=== PATIENT | male | born 1955 | race American Indian/Alaskan Native ===

== ENCOUNTER 2017-07-31 16:14 | Emergency (ER) | payer SELFPAY ==
[2017-07-31 16:22] VITALS: BP 148/92
== END 2017-07-31 19:35 | disposition left against medical advice (07) ==
LOC: ED 16:14
DX: M54.9 Dorsalgia, unspecified (principal); Z53.21 Procedure and treatment not carried out due to patient leaving prior to being seen by health care provider

== ENCOUNTER 2019-07-02 06:22 | Observation (INO) | payer MEDICAID ==
[2019-07-02] MEDS ORDERED: ONDANSETRON 4 MG/2 ML INJ IV ONE (07:24)
[2019-07-02] MEDS ORDERED: MORPHINE 2 MG/1 ML INJ IV ONE (07:24)
[2019-07-02] MEDS ORDERED: LORazepam 2 MG/ML VIAL IV ONE (07:24)
--- NOTE | 2019-07-02 07:29 | Emergency Department Report ---
ED Chest Pain HPI - General Chief Complaint: Chest Pain Stated Complaint: CP Time Seen by Provider: 07/02/19 07:07 Source: EMS Mode of arrival: Stretcher Limitations: No Limitations - History of Present Illness Initial Comments: 63-year-old male states he awoke with chest pain at about 4 PM yesterday. He was taking a nap prior. He admits to chronic pain and sees a ict analyst. He states he has a "lupus factor". He has chronic joint pain. He states he has pain in the left ankle which is chronic. He's had no leg swelling or pain. He states the pain in his chest is sharp and nonradiating. It is in the left mammary area. It is not associated with cough or shortness of breath. The patient admits to having an anxiety disorder. He states he sees a elephant tamer in [place] that "did a stress test" 2 years ago but "did not put me on a machine". He was here for chest pain in the past but eloped. He has no history of venous thromboembolism himself and not in the family. He states that his father of a myocardial infarction when he was in his 40s. I reviewed the patient's prior EKG here when he eloped after presenting from c hest pain. He did have intermittent inverted T waves that are not currently present. MD Complaint: chest pain Onset: during rest Pain Location: left chest Pain Radiation: none Severity: moderate Quality: aching Consistency: intermittent Improves With: nothing Worsens With: other (yesterday was worse with breathing) re: denies: nausea, vomting, diaphoresis, dyspnea Other Symptoms: denies: cough, fever, syncope Aspirin use within the Past 7 Days: (0) No - Related Data Home Medications Medication Instructions Recorded Confirmed Last Taken Simvastatin [Zocor TAB] 40 mg PO DAILY 07/19/15 07/19/15 07/19/15 lisinopriL [Zestril TAB] 40 mg PO QDAY 07/19/15 07/19/15 07/19/15 Previous Rx's Medication Instructions Recorded Last Taken Type HYDROcodone/APAP 5-325 [[place] 1 each PO Q6HR PRN #14 tablet 07/19/15 Unknown Rx 5/325] oxyCODONE /ACETAMINOPHEN [Percocet 1 tab PO Q6HR PRN #7 tablet 07/20/15 Unknown Rx 5/325] Allergies Allergy/AdvReac Type Severity Reaction Status Date / Time diphenhydramine HCl Allergy Hives Verified 10/31/14 10:30 [From Benadryl] Heart Score - HEART Score History: Moderately suspicious EKG: Normal Age: 45-65 Risk factors: > 3 risk factors or hx of atherosclerotic disease Troponin: < normal limit HEART Score: 4 - Critical Actions Critical Actions: 4-6 pts:12-16.6% risk of adverse cardiac event. Should be admitted ED Review of Systems ROS: Stated complaint: CP Other details as noted in HPI Constitutional: denies: chills, fever Eyes: denies: eye pain, eye discharge, vision change ENT: denies: ear pain, throat pain Respiratory: denies: cough, shortness of breath, wheezing Cardiovascular: chest pain. denies: palpitations Endocrine: no symptoms reported Gastrointestinal: denies: abdominal pain, nausea, diarrhea Genitourinary: denies: urgency, dysuria Musculoskeletal: denies: back pain, joint swelling, arthralgia Skin: denies: rash, lesions Neurological: denies: headache, weakness, paresthesias Psychiatric: denies: anxiety, depression Hematological/Lymphatic: denies: easy bleeding, easy bruising ED Past Medical Hx - Past Medical History Hx Hypertension: Yes Hx Arthritis: Yes Additional medical history: high cholesterol - Surgical History Additional Surgical History: bilateral biceps repair. right rotator cuff repair. left great toe bone spur - Social History Smoking Status: Never Smoker Substance Use Type: Alcohol - Medications Home Medications: Home Medications Medication Instructions Recorded Confirmed Last Taken Type HYDROcodone/APAP 5-325 [[place] 1 each PO Q6HR PRN #14 tablet 07/19/15 Unknown Rx 5/325] Simvastatin [Zocor TAB] 40 mg PO DAILY 07/19/15 07/19/15 07/19/15 History lisinopriL [Zestril TAB] 40 mg PO QDAY 07/19/15 07/19/15 07/19/15 History oxyCODONE /ACETAMINOPHEN [Percocet 1 tab PO Q6HR PRN #7 tablet 07/20/15 Unknown Rx 5/325] ED Physical Exam - General Limitations: Other (patient's and jumping around on the stretcher) General appearance: alert, anxious - Head Head exam: Present: atraumatic, normocephalic - Eye Eye exam: Present: normal appearance. Absent: scleral icterus - ENT ENT exam: Present: mucous membranes moist - Neck Neck exam: Present: normal inspection. Absent: tenderness, meningismus - Respiratory Respiratory exam: Present: normal lung sounds bilaterally. Absent: respiratory distress - Cardiovascular Cardiovascular Exam: Present: regular rate, normal rhythm. Absent: systolic murmur, diastolic murmur, rubs, gallop - GI/Abdominal GI/Abdominal exam: Present: soft, normal bowel sounds. Absent: distended, tenderness, guarding, rebound, rigid - Rectal Rectal exam: Present: deferred - Extremities Exam Extremities exam: Present: normal inspection - Back Exam Back exam: Present: normal inspection - Neurological Exam Neurological exam: Present: alert, oriented X3, CN II-XII intact. Absent: motor sensory deficit - Psychiatric Psychiatric exam: Present: normal affect, normal mood - Skin Skin exam: Present: warm, dry, intact, normal color. Absent: rash ED Course Vital Signs 07/02/19 07/02/19 06:51 08:44 Temperature 97.4 F L Pulse Rate 92 H 90 Respiratory 27 H 16 Rate Blood Pressure 141/88 Blood Pressure 124/78 [Right] O2 Sat by Pulse 100 100 Oximetry - Reevaluation(s) Reevaluation #1: Patient was given morphine as well as small dose of Ativan. His acute anxiety seemed to improve. He was admitted by the hospitalist service further care and evaluation. 07/02/19 10:59 ALYSIA score - Alysia Score Age > 65: (0) No Aspirin use within the Past 7 Days: (0) No 3 or more CAD Risk Factors: (1) Yes 2 or more Angina events in past 24 hrs: (0) No Known CAD with more than 50% Stenosis: (0) No Elevated Cardiac Markers: (0) No ST Deviation Greater than 0.5mm: (0) No ALYSIA Score: 1 ED Medical Decision Making - Lab Data Result diagrams: 07/02/19 07:25 07/02/19 07:25 Laboratory Results - last 24 hr 07/02/19 07/02/19 07/02/19 07:25 07:25 07:25 WBC 6.5 RBC 4.27 Hgb 13.2 Hct 39.6 MCV 93 MCH 31 MCHC 33 RDW 12.9 L Plt Count 238 Lymph % (Auto) 23.0 [place] % (Auto) 14.8 H Eos % (Auto) 1.4 Baso % (Auto) 1.0 Lymph # 1.5 [place] # 1.0 H Eos # 0.1 Baso # 0.1 Seg Neutrophils % 59.8 Seg Neutrophils # 3.9 PT 15.3 H INR 1.19 H APTT 36.1 D-Dimer 280.54 H Sodium 136 L Potassium 3.8 Chloride 99.6 Carbon Dioxide 19 L Anion Gap 21 BUN 15 Creatinine 1.2 Estimated GFR > 60 BUN/Creatinine Ratio 13 Glucose 89 Calcium 9.3 Total Bilirubin 1.10 Direct Bilirubin 0.3 H Indirect Bilirubin 0.8 AST 45 H ALT 21 Alkaline Phosphatase 87 Troponin T < 0.010 NT-Pro-B Natriuret Pep 122.0 Total Protein 7.0 Albumin 3.8 L Albumin/Globulin Ratio 1.2 - EKG Data -: EKG Interpreted by Me EKG shows normal: sinus rhythm, axis, intervals, QRS complexes, ST-T waves Rate: normal - Radiology Data Radiology results: report reviewed (no acute process) Critical care attestation.: If time is entered above; I have spent that time in minutes in the direct care of this critically ill patient, excluding procedure time. ED Disposition Clinical Impression: Acute anxiety Chest pain Qualifiers: Chest pain type: unspecified Qualified Code(s): R07.9 - Chest pain, unspecified Disposition: OP ADMIT IP TO THIS HOSP Is pt being admited?: Yes Does the pt Need Aspirin: Yes Condition: Stable Instructions: Chest Pain (ED) Time of Disposition: 11:01
[2019-07-02 07:49] LABS: Basophils # (Auto) 0.1 K/mm3 (0.0-0.1); Eosinophils # (Auto) 0.1 K/mm3 (0.0-0.4); Eosinophils % (Auto) 1.4 % (0.0-4.3); Hematocrit 39.6 % (35.5-45.6); Hemoglobin 13.2 gm/dl (11.8-15.2); Lymphocytes # (Auto) 1.5 K/mm3 (1.2-5.4); Mean Corpuscular HGB Conc 33 % (32-34); Mean Corpuscular Volume 93 fl (84-94); Monocytes % (Auto) 14.8 % (0.0-7.3); Platelet Count 238 K/mm3 (140-440); Red Blood Count 4.27 M/mm3 (3.65-5.03); Red Cell Distribution Width 12.9 % (13.2-15.2)
[2019-07-02 08:00] LABS: INR 1.19 (0.87-1.13)
[2019-07-02 08:01] LABS: Partial Thromboplastin Time 36.1 Sec. (24.2-36.6)
[2019-07-02 08:18] LABS: Alanine Aminotransferase 21 units/L (7-56); Albumin 3.8 g/dL (3.9-5); BUN/Creatinine Ratio 13; Bilirubin,Direct 0.3 mg/dL (0-0.2); Blood Urea Nitrogen 15 mg/dL (9-20); Calcium 9.3 mg/dL (8.4-10.2); Hemolysis Index 15
[2019-07-02] MEDS ORDERED: ASPIRIN 325 MG TAB PO ONE (11:01)
--- NOTE | 2019-07-02 11:10 | Nuclear Medicine Report ---
NUCLEAR MEDICINE VENTILATION/PERFUSION LUNG SCAN INDICATION / CLINICAL INFORMATION: Chest pain, slightly elevated d-dimer. TECHNIQUE: 19.1 mCi of Xe-133 were given by inhalation. 4.6 mCi of Tc-99m MAA were given by IV. COMPARISON: Chest radiograph dated 08/31/2019 at 0743 hours. FINDINGS: VENTILATION: No significant ventilation defects. PERFUSION: 2 small subsegmental perfusion defects are identified in the lateral right lower lobe and right upper lobe. There is homogeneous distribution of the radiotracer throughout the remaining lungs . ADDITIONAL FINDINGS: None. IMPRESSION: Intermediate probability for pulmonary embolism. 2 small subsegmental perfusion defects are suggeste d in the right lung. Consider further evaluation with CTA chest. Signer Name: Tommy Emerson Jr, MD Signed: 07/02/2019 11:05 AM Workstation Name: [id number]
[2019-07-02] MEDS ORDERED: ASPIRIN 325 MG TAB ONE (12:22)
--- NOTE | 2019-07-02 14:32 | History and Physical Report ---
History of Present Illness Date of examination: 07/02/19 Date of admission: 07/02/19 11:01 Chief complaint: Chest pain History of present illness: 63-year-old male patient with significant past medical history of arthritis dyslipidemia presented to the emergency room with chest pain yesterday evening. Patient also has history of chronic pain and sees a log manager and was told that he has lupus factor. Patient also complains of some joint pains. 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 Patient also gives family history of coronary artery disease and his father in his 40s. OK At the time of my evaluation patient's chest pain significantly improved grades between 4-5/10, mild nausea no vomiting or diaphoresis Patient denies shortness of breath no nausea vomiting or abdominal pain First set of cardiac enzymes negative Patient had Elevated d-dimer's, VQ scan intermediate probability for PE Past History Past Medical History: arthritis, hypertension, hyperlipidemia Past Surgical History: Other (sabrina biceps repair, right rotator cuff repair, left great toe bone spur) Social history: lives with family. denies: smoking, alcohol abuse, prescription drug abuse Family history: CAD, hypertension Medications and Allergies Allergies Allergy/AdvReac Type Severity Reaction Status Date / Time diphenhydramine HCl Allergy Hives Verified 10/31/14 10:30 [[facility] Home Medications Medication Instructions Recorded Confirmed Last Taken Type HYDROcodone/APAP 5-325 [[place] 1 each PO Q6HR PRN #14 tablet 07/19/15 07/02/19 Unknown Rx 5/325] Simvastatin [Zocor TAB] 40 mg PO DAILY 07/19/15 07/02/19 07/19/15 History lisinopriL [Zestril TAB] 40 mg PO QDAY 07/19/15 07/02/19 07/19/15 History oxyCODONE /ACETAMINOPHEN [Percocet 1 tab PO Q6HR PRN #7 tablet 07/20/15 07/02/19 Unknown Rx 5/325] Gabapentin 10 mg PO DAILY 07/02/19 07/02/19 Unknown History Review of Systems Constitutional: no weight loss, no weight gain Ears, nose, mouth and throat: no nasal congestion, no nasal discharge Cardiovascular: chest pain, no orthopnea, no palpitations, no rapid/irregular heart beat, no edema Respiratory: no excessive sputum, no shortness of breath Gastrointestinal: no abdominal pain, no nausea, no vomiting Genitourinary Male: no dysuria, no hematuria Musculoskeletal: no neck stiffness, no neck pain Integumentary: no rash, no lesions Neurological: no weakness, no numbness, no seizures, no syncope Psychiatric: no anxiety, no depression Endocrine: no cold intolerance, no heat intolerance Hematologic/Lymphatic: no easy bruising, no easy bleeding Allergic/Immunologic: no urticaria, no allergic rhinitis Exam - Constitutional Vitals: Temp Pulse Resp BP Pulse Ox 97.8 F 82 16 115/79 98 07/02/19 12:23 07/02/19 12:23 07/02/19 12:23 07/02/19 12:07/02/19 12:23 General appearance: Present: no acute distress, well-nourished - EENT Eyes: Present: PERRL, EOM intact - Neck Neck: Present: supple, normal ROM - Respiratory Respiratory effort: normal Respiratory: bilateral: diminished, negative: rales, rhonchi, wheezing - Cardiovascular Rhythm: regular Heart Sounds: Present: S1 & S2 - Extremities Extremities: no ischemia, No edema - Abdominal General gastrointestinal: Present: soft, non-tender, non-distended, normal bowel sounds - Integumentary Integumentary: Present: clear, warm - Musculoskeletal Musculoskeletal: strength equal bilaterally - Psychiatric Psychiatric: appropriate mood/affect, cooperative - Neurologic Neurologic: CNII-XII intact, moves all extremities Results - Labs CBC & Chem 7: 07/02/19 07:25 07/02/19 07:25 Labs: Abnormal lab results 07/02/19 07/02/19 07/02/19 Range/Units 07:25 07:25 07:25 RDW 12.9 L (13.2-15.2) % [place] % (Auto) 14.8 H (0.0-7.3) % [place] # 1.0 H (0.0-0.8) K/mm3 PT 15.3 H (12.2-14.9) Sec. INR 1.19 H (0.87-1.13) D-Dimer 280.54 H (0-234) ng/mlDDU Sodium 136 L (137-145) mmol/L Carbon Dioxide 19 L (22-30) mmol/L Direct Bilirubin 0.3 H (0-0.2) mg/dL AST 45 H (5-40) units/L Albumin 3.8 L (3.9-5) g/dL Assessment and Plan --Chest pain; angina; Serial cardiac enzymes, echocardiogram Aspirin, beta blockers, nitrates, Oscar inhibitors, statins Pain medications, EKG when necessary for chest pain This patient has risk factors of family history of CAD Cardiology consult possible stress test [Cannot schedule's test tomorrow due to VQ scan study] --Elevated D dimers; Intermittent probability for PE on VQ scan Check CT angiogram of the chest to rule out PE --Hypertension; moderate control Continue current antihypertensives when necessary medications --Dyslipidemia; continue Lipitor --DVT prophylaxis; Lovenox Monitor closely and adjust management as needed. Disposition ; follow cardiology evaluation Discharge when stable
[2019-07-02] MEDS ORDERED: NITROGLYCERIN 0.4 MG TAB SUBL SL PRN (14:39)
[2019-07-02 15:24] LABS: Creatine Kinase MB 8.5 ng/mL (0.0-4.0)
[2019-07-02 15:26] LABS: Chol/HDL Ratio 2.18 %
[2019-07-02] MEDS: METOPROLOL TARTRATE 25 MG TAB PO SCH ×2 (17:11→22:40)
[2019-07-02] MEDS: LISINOPRIL 40 MG TAB PO SCH (17:13)
--- NOTE | 2019-07-02 18:45 | Event Note ---
Date: 07/02/19 Spoke with patient's daughter Ms. Natacha Cornell over the phone Patient's condition, treatment plan. Answered all her questions.
[2019-07-03 07:11] LABS: Bilirubin,Urine NEG (Negative); Blood,Urine NEG (Negative); Color,Urine Amber (Yellow); Mucus,Urine FEW /HPF; Protein,Urine <15 mg/dL mg/dL (Negative)
[2019-07-03 07:25] LABS: Amphetamine Screen,Urine PRESUMPTIVE NEGATIVE; Benzodiazepines Screen,Urine PRESUMPTIVE NEGATIVE; Cannabinoid Screen,Urine PRESUMPTIVE NEGATIVE; Methadone Screen,Urine PRESUMPTIVE NEGATIVE; Opiate Screen,Urine PRESUMPTIVE NEGATIVE
[2019-07-03 07:50] LABS: Cocaine Screen,Urine PRESUMPTIVE POSITIVE
[2019-07-03] MEDS ORDERED: MORPHINE 2 MG/1 ML INJ IV PRN (08:55)
[2019-07-03] MEDS ORDERED: ENOXAPARIN 100 MG/1 ML INJ SUB-Q SCH (10:00)
[2019-07-03] MEDS ORDERED: ENOXAPARIN 60 MG/0.6 ML INJ SUB-Q SCH (10:00)
[2019-07-03] MEDS ORDERED: NON-FORMULARY EACH (Simvastatin 40 MG) PO SCH (10:00)
--- NOTE | 2019-07-03 11:12 | Consultation ---
History of Present Illness Consult date: 07/03/19 Consult reason: chest pain History of present illness: This is a 63-year old male with a history of nonischemic cardiomyopathy by stress thallium test three years ago that reports normal myocardial perfusion study but a decrease left ventricular systolic function, ejection fraction 30- 35%. A follow up echocardiogram done a year later reports an improved left ventricular ejection fraction of 50-55%. Patient is followed by [facility] in [place]. Co-morbidities includes hypertension and hyperlipidemia Patient presents to this hospital with complaints of chest pain thus this cardiac consultation. Patient describes chest pain that worse with position changes, coughs, deep inspiration and raising his left arm. Cycled cardiac enzymes are normal. Chest x-ray reports is negative and hs ECG is benign. Further evaluation with a ventilation perfusion scan reports intermediate probability for PE. Past History Past Medical History: arthritis, hypertension, hyperlipidemia Past Surgical History: Other (sabrina biceps repair, right rotator cuff repair, left great toe bone spur) Social history: lives with family. denies: smoking, alcohol abuse, prescription drug abuse Family history: CAD, hypertension Medications and Allergies Allergies Allergy/AdvReac Type Severity Reaction Status Date / Time diphenhydramine HCl Allergy Hives Verified 10/31/14 10:30 [From Benadryl] Home Medications Medication Instructions Recorded Confirmed Last Taken Type HYDROcodone/APAP 5-325 [[place] 1 each PO Q6HR PRN #14 tablet 07/19/15 07/02/19 Unknown Rx 5/325] Simvastatin [Zocor TAB] 40 mg PO DAILY 07/19/15 07/02/19 07/19/15 History lisinopriL [Zestril TAB] 40 mg PO QDAY 07/19/15 07/02/19 07/19/15 History oxyCODONE /ACETAMINOPHEN [Percocet 1 tab PO Q6HR PRN #7 tablet 07/20/15 07/02/19 Unknown Rx 5/325] Gabapentin 10 mg PO DAILY 07/02/19 07/02/19 Unknown History Active Meds: Active Medications Aspirin (Aspirin) 325 mg PO QDAY [facility] Atorvastatin Calcium (Lipitor) 20 mg PO QHS [facility] Last Admin: 07/02/19 22:37 Dose: 20 mg Documented by: Enoxaparin Sodium (Enoxaparin) 60 mg SUB-Q Q12HR [facility]ID Lisinopril (Zestril) 40 mg PO QDAY [facility] Last Admin: 07/02/19 17:13 Dose: 40 mg Documented by: Metoprolol Tartrate (Metoprolol) 12.5 mg PO BID [facility] Last Admin: 07/02/19 22:40 Dose: Not Given Documented by: Morphine Sulfate (Morphine) 2 mg IV Q4H PRN PRN Reason: Pain, Moderate (4-6) Nitroglycerin (Nitrostat) 0.4 mg SL .Q5MIN PRN PRN Reason: Chest Pain Physical Examination Vital Signs Temp Pulse Resp BP Pulse Ox 97.4 F L 92 H 27 H 141/88 100 07/02/19 06:51 07/02/19 06:51 07/02/19 06:51 07/02/19 06:51 07/02/19 06:51 General appearance: no acute distress HEENT: Positive: PERRL Neck: Positive: trachea midline Cardiac: Positive: Reg Rate and Rhythm Lungs: Positive: Decreased Breath Sounds Neuro: Positive: Grossly Intact Extremities: Absent: edema Results 07/02/19 07:25 07/02/19 07:25 Cardiac Enzymes 07/02/19 Range/Units 14:41 CK-MB (CK-2) 8.5 H (0.0-4.0) ng/mL Lipids 07/02/19 Range/Units 14:41 Triglycerides 45 (2-149) mg/dL Cholesterol 140 (50-199) mg/dL HDL Cholesterol 64 H (40-59) mg/dL Cholesterol/HDL Ratio 2.18 % Assessment and Plan Chest pain, musculoskeletal VQ scan: intermediate probability for PE Hypertension Hx of NICMP, resolving EF 50-55% by echo at [facility] in 2018 EF 30-35% by echo at [facility] in 2017 normal perfusion MPI Hlp We will repeat an echocardiogram for LVEF reassessment. Awaits chest CTA for PE evaluation.
--- NOTE | 2019-07-03 11:55 | Cat Scan Report ---
CTA CHEST WITH CONTRAST INDICATION : interm.probab PE on VQ, r/o PE. Chest pain. TECHNIQUE: Axial imaging performed through the chest, with contrast bolus timing set to maximize opa cification of the pulmonary arteries. 3-plane MIP reformatted images were obtained. All CT scans at this location are performed using CT dose reduction for ALARA by means of automated exposure control. 100 mL of Omnipaque 350 intravenous contrast administered. Consent was obtained prior to the administ ration of contrast. COMPARISON: Chest x-ray and nuclear medicine lung scan from 07/02/2019. No previous CTA Chest for corey hassan. FINDINGS: Bolus: Contrast bolus timing is adequate. PTE: No filling defect is present to suggest PTE. Mediastinum: Heart and great vessels appear normal. No pathologic mediastinal adenopathy. Lungs: Lungs are clear. Upper abdomen: Limited imaging of the upper abdomen shows nothing acute. Bones: Degenerative changes in the spine with nothing acute. IMPRESSION: Negative for PTE. Clear lungs. Signer Name: Rao Bryan MD Signed: 07/03/2019 11:51 AM Workstation Name: [id number]
[2019-07-03] MEDS: METOPROLOL TARTRATE 25 MG TAB PO SCH ×2 (14:00→21:08)
[2019-07-03] MEDS: ASPIRIN 325 MG TAB PO SCH (15:00)
[2019-07-03] MEDS: KETOROLAC 30 MG/1 ML INJ IV SCH ×2 (15:01→21:39)
--- NOTE | 2019-07-03 17:46 | Progress Note ---
Assessment and Plan Assessment and plan: 63-year-old male patient with significant past medical history of arthritis dyslipidemia was admitted through emergency room with chest pain and shortness of breath Patient had negative stress test 2 years ago, has family history of coronary artery disease, cardiology evaluated, echo EF 25-30% --Chest pain; angina; Serial cardiac enzymes, echocardiogram;EF 25-30% Aspirin, beta blockers, nitrates, Oscar inhibitors, statins Pain medications, EKG when necessary for chest pain This patient has risk factors of family history of CAD Cardiology following --Acute systolic congestive heart failure; EF 25-30% IV diuretics, beta blockers, oscar inhibitors, input output monitoring Low-sodium diet, fluid restriction. Cardiology following --Elevated D dimers; Intermittent probability for PE on VQ scan CTA chest neg PE --Hypertension; moderate control Continue current antihypertensives when necessary medications --Dyslipidemia; continue Lipitor --DVT prophylaxis; Lovenox Monitor closely and adjust management as needed. Plan of care reviewed with the patient and his nurse Cardiology consult and recommendations noted and appreciated Disposition ; follow cardiology evaluation Discharge when stable History Interval history: Patient seen examination at the bedside ,medical records reviewed CT chest is negative for PE, Lovenox discontinued Cardiology evaluation and recommendations noted and appreciated Hospitalist Physical - Constitutional Vitals: Temp Pulse Resp BP Pulse Ox 98.0 F 78 16 112/69 98 07/03/19 07:00 07/03/19 07:00 07/03/19 07:00 07/03/19 07:00 07/03/19 07:00 General appearance: Present: mild distress, well-nourished - EENT Eyes: Present: PERRL, EOM intact - Neck Neck: Present: supple, normal ROM - Respiratory Respiratory effort: normal Respiratory: bilateral: diminished, rales, negative: rhonchi, wheezing - Cardiovascular Rhythm: regular Heart Sounds: Present: S1 & S2 - Extremities Extremities: no ischemia, No edema - Abdominal General gastrointestinal: soft, non-tender, non-distended, normal bowel sounds - Integumentary Integumentary: Present: clear, warm - Psychiatric Psychiatric: appropriate mood/affect, cooperative - Neurologic Neurologic: CNII-XII intact, moves all extremities HAROON score - Haroon Score Age > 65: (0) No Aspirin use within the Past 7 Days: (0) No 3 or more CAD Risk Factors: (1) Yes 2 or more Angina events in past 24 hrs: (0) No Known CAD with more than 50% Stenosis: (0) No Elevated Cardiac Markers: (0) No ST Deviation Greater than 0.5mm: (0) No HAROON Score: 1 Results - Labs CBC & Chem 7: 07/02/19 07:25 07/02/19 07:25 Labs: Laboratory Last Values WBC 6.5 K/mm3 (4.5-11.0) 07/02/19 07:25 RBC 4.27 M/mm3 (3.65-5.03) 07/02/19 07:25 Hgb 13.2 gm/dl (11.8-15.2) 07/02/19 07:25 Hct 39.6 % (35.5-45.6) 07/02/19 07:25 MCV 93 fl (84-94) 07/02/19 07:25 MCH 31 pg (28-32) 07/02/19 07:25 MCHC 33 % (32-34) 07/02/19 07:25 RDW 12.9 % (13.2-15.2) L 07/02/19 07:25 Plt Count 238 K/mm3 (140-440) 07/02/19 07:25 Lymph % (Auto) 23.0 % (13.4-35.0) 07/02/19 07:25 [place] % (Auto) 14.8 % (0.0-7.3) H 07/02/19 07:25 Eos % (Auto) 1.4 % (0.0-4.3) 07/02/19 07:25 Baso % (Auto) 1.0 % (0.0-1.8) 07/02/19 07:25 Lymph # 1.5 K/mm3 (1.2-5.4) 07/02/19 07:25 [place] # 1.0 K/mm3 (0.0-0.8) H 07/02/19 07:25 Eos # 0.1 K/mm3 (0.0-0.4) 07/02/19 07:25 Baso # 0.1 K/mm3 (0.0-0.1) 07/02/19 07:25 Seg Neutrophils % 59.8 % (40.0-70.0) 07/02/19 07:25 Seg Neutrophils # 3.9 K/mm3 (1.8-7.7) 07/02/19 07:25 PT 15.3 Sec. (12.2-14.9) H 07/02/19 07:25 INR 1.19 (0.87-1.13) H 07/02/19 07:25 APTT 36.1 Sec. (24.2-36.6) 07/02/19 07:25 D-Dimer 280.54 ng/mlDDU (0-234) H 07/02/19 07:25 Sodium 136 mmol/L (137-145) L 07/02/19 07:25 Potassium 3.8 mmol/L (3.6-5.0) 07/02/19 07:25 Chloride 99.6 mmol/L (98-107) 07/02/19 07:25 Carbon Dioxide 19 mmol/L (22-30) L 07/02/19 07:25 Anion Gap 21 mmol/L 07/02/19 07:25 BUN 15 mg/dL (9-20) 07/02/19 07:25 Creatinine 1.2 mg/dL (0.8-1.5) 07/02/19 07:25 Estimated GFR > 60 ml/min 07/02/19 07:25 BUN/Creatinine Ratio 13 % 07/02/19 07:25 Glucose 89 mg/dL (75-100) 07/02/19 07:25 POC Glucose 147 (70-105) H 07/03/19 16:35 Calcium 9.3 mg/dL (8.4-10.2) 07/02/19 07:25 Total Bilirubin 1.10 mg/dL (0.1-1.2) 07/02/19 07:25 Direct Bilirubin 0.3 mg/dL (0-0.2) H 07/02/19 07:25 Indirect Bilirubin 0.8 mg/dL 07/02/19 07:25 AST 45 units/L (5-40) H 07/02/19 07:25 ALT 21 units/L (7-56) 07/02/19 07:25 Alkaline Phosphatase 87 units/L (35-129) 07/02/19 07:25 Total Creatine Kinase 795 units/L (55-170) H 07/02/19 14:41 CK-MB (CK-2) 8.5 ng/mL (0.0-4.0) H 07/02/19 14:41 CK-MB (CK-2) Rel Index 1.0 (0-4) 07/02/19 14:41 Troponin T < 0.010 ng/mL (0.00-0.029) 07/02/19 14:41 NT-Pro-B Natriuret Pep 122.0 pg/mL (0-900) 07/02/19 07:25 Total Protein 7.0 g/dL (6.3-8.2) 07/02/19 07:25 Albumin 3.8 g/dL (3.9-5) L 07/02/19 07:25 Albumin/Globulin Ratio 1.2 % 07/02/19 07:25 Triglycerides 45 mg/dL (2-149) 07/02/19 14:41 Cholesterol 140 mg/dL (50-199) 07/02/19 14:41 LDL Cholesterol Direct 74 mg/dL (50-130) 07/02/19 14:41 HDL Cholesterol 64 mg/dL (40-59) H 07/02/19 14:41 Cholesterol/HDL Ratio 2.18 % 07/02/19 14:41 Urine Color [place] (Yellow) 07/02/19 07:00 Urine Turbidity Clear (Clear) 07/02/19 07:00 Urine pH 5.0 (5.0-7.0) 07/02/19 07:00 Ur Specific [place] 1.021 (1.003-1.030) 07/02/19 07:00 Urine Protein <15 mg/dl mg/dL (Negative) 07/02/19 07:00 Urine Glucose (UA) Neg mg/dL (Negative) 07/02/19 07:00 Urine Ketones Neg mg/dL (Negative) 07/02/19 07:00 Urine Blood Neg (Negative) 07/02/19 07:00 Urine Nitrite Neg (Negative) 07/02/19 07:00 Urine Bilirubin Neg (Negative) 07/02/19 07:00 Urine Urobilinogen 4.0 mg/dL (<2.0) 07/02/19 07:00 Ur Leukocyte Esterase Neg (Negative) 07/02/19 07:00 Urine WBC (Auto) 1.0 /HPF (0.0-6.0) 07/02/19 07:00 Urine RBC (Auto) 1.0 /HPF (0.0-6.0) 07/02/19 07:00 U Epithel Cells (Auto) < 1.0 /HPF (0-13.0) 07/02/19 07:00 Urine Mucus Few /HPF 07/02/19 07:00 Urine Opiates Screen Presumptive negative 07/02/19 07:00 Urine Methadone Screen Presumptive negative 07/02/19 07:00 Ur Barbiturates Screen Presumptive negative 07/02/19 07:00 Ur Phencyclidine Scrn Presumptive negative 07/02/19 07:00 Ur Amphetamines Screen Presumptive negative 07/02/19 07:00 U Benzodiazepines Scrn Presumptive negative 07/02/19 07:00 Urine Cocaine Screen Presumptive positive 07/02/19 07:00 U Marijuana (THC) Screen Presumptive negative 07/02/19 07:00 Drugs of Abuse Note Disclamer 07/02/19 07:00 Active Medications - Current Medications Current Medications: Generic Name Dose Route Start Last Admin Trade Name Freq PRN Reason Stop Dose Admin Aspirin 325 mg 07/03/19 10:00 07/03/19 15:00 Aspirin PO 325 mg QDAY REID Administration Atorvastatin Calcium 20 mg 07/02/19 22:00 07/02/19 22:37 Lipitor PO 20 mg QHS REID Administration Enoxaparin Sodium 60 mg 07/03/19 10:00 07/03/19 15:00 Enoxaparin SUB-Q 60 mg Q12HR REID Administration Ketorolac Tromethamine 30 mg 07/03/19 14:00 07/03/19 15:01 Toradol IV 07/05/19 06:01 30 mg Q8HR REID Administration Lisinopril 40 mg 07/02/19 15:00 07/02/19 17:13 Zestril PO 40 mg QDAY REID Administration Metoprolol Tartrate 12.5 mg 07/02/19 15:00 07/02/19 22:40 Metoprolol PO Not Given BID REID Morphine Sulfate 2 mg 07/03/19 08:55 Morphine IV Q4H PRN Pain, Moderate (4-6) Nitroglycerin 0.4 mg 07/02/19 14:39 Nitrostat SL .Q5MIN PRN Chest Pain
[2019-07-03] MEDS: LISINOPRIL 40 MG TAB PO SCH (18:45)
[2019-07-04] MEDS: KETOROLAC 30 MG/1 ML INJ IV SCH ×2 (05:10→14:31)
--- NOTE | 2019-07-04 09:09 | Progress Note ---
Assessment and Plan Chest pain, musculoskeletal VQ scan: intermediate probability for PE CT angiogram of the chest was negative for pulmonary embolism Hypertension Hx of NICMP Echo this admission reports mild dilated left ventricle with moderate left ventricular hypertrophy, and left ventricular EF 30%. EF 50-55% by echo at [facility] in 2018 EF 30-35% by echo at [facility] in 2017 normal perfusion MPI Hlp Substance abuse Recommendations: Continue medical therapy for musculoskeletal chest pain. Continue medical therapy for nonischemic cardiomyopathy. Subjective Date of service: 07/04/19 Interval history: Patient reports less chest pain since the initiation of IV Toradol. He denies shortness of breath. Objective Vital Signs Temp Pulse Resp BP Pulse Ox 07/04/19 05:56 97.6 F 87 18 123/67 96 07/03/19 23:01 98.1 F 75 18 116/67 97 07/03/19 18:45 119/68 07/03/19 17:52 98.0 F 77 20 119/68 99 - Physical Examination General: No Apparent Distress HEENT: Positive: PERRL Neck: Positive: trachea midline Cardiac: Positive: Reg Rate and Rhythm Lungs: Positive: Decreased Breath Sounds Neuro: Positive: Grossly Intact Extremities: Absent: edema
[2019-07-04] MEDS: ASPIRIN 325 MG TAB PO SCH (09:47)
[2019-07-04] MEDS: METOPROLOL TARTRATE 25 MG TAB PO SCH (09:47)
[2019-07-04] MEDS: LISINOPRIL 40 MG TAB PO SCH (09:47)
[2019-07-04] MEDS ORDERED: ENOXAPARIN 40 MG/0.4 ML INJ SUB-Q SCH (10:00)
[2019-07-04] MEDS ORDERED: ENOXAPARIN 30 MG/0.3 ML INJ SUB-Q SCH (10:00)
[2019-07-04 13:55] VITALS: BP 116/66
--- NOTE | 2019-07-04 15:17 | Discharge Summary ---
Providers - Providers Date of Admission: 07/02/19 11:01 Date of discharge: 07/04/19 Attending physician: DIANNE GONZALEZ 07/02/19 16:42 Consult to Physician [CONS] Routine Comment: Consulting Provider: JB ROSE Physician Instructions: Reason For Exam: chest pain /risk factors Primary care physician: [facility] [employer] [facility]N Hospitalization Condition: Stable Pertinent studies: CXR Pulmonary VQ scan CTA chest 2d echo Hospital course: 63-year-old man with h/o CHF who presented with atypical, pleuritic left-sided chest pain. Chest pain is aggravated by movements of the thorax and by inspiration. A VQ scan study was intermediate probability, but the follow-up CT angiogram of the chest was negative for pulmonary embolism. On this presentation, EKG is a sinus rhythm, normal ECG. Echocardiogram done showed a mildly dilated left ventricle with moderate left ventricular hypertrophy, and left ventricular ejection fraction about 30%. His UDs was positive for Cocaine, he also had mildly elevated CPK. Cardiology evaluated the patient and recommended medical mx. Patient was then discharged home in stable condition. Discharge diagnosis: Chest pain, musculoskeletal - costrochondritis - VQ scan: intermediate probability for PE - CT angiogram of the chest was negative for pulmonary embolism Hypertension, stable Hx of NICMP, compensated - Echo this admission reports mild dilated left ventricle with moderate left ventricular hypertrophy, and left ventricular EF 30%. - cardiology recommended medical Mx HLD, cont diet control and statin Elevated CPK/rhabdomyolysis - likely from cocaine abuse - patient was stable Substance abuse with cocaine, counseled Time spent for discharge: 34 minutes Core Measure Documentation - Palliative Care Palliative Care/ Comfort Measures: Not Applicable - Core Measures Any of the following diagnoses?: none Exam - Constitutional Vitals: Temp Pulse Resp BP Pulse Ox 97.8 F 78 18 116/66 98 07/04/19 13:53 07/04/19 13:53 07/04/19 13:53 07/04/19 13:53 07/04/19 13:53 General appearance: Present: no acute distress, well-nourished - EENT Eyes: Present: PERRL ENT: hearing intact, clear oral mucosa - Neck Neck: Present: supple, normal ROM - Respiratory Respiratory effort: normal Respiratory: bilateral: CTA - Cardiovascular Heart Sounds: Present: S1 & S2. Absent: rub, click - Extremities Extremities: pulses symmetrical, No edema Peripheral Pulses: within normal limits - Abdominal General gastrointestinal: Present: soft, non-tender, non-distended, normal bowel sounds Male genitourinary: Present: normal - Integumentary Integumentary: Present: clear, warm, dry - Musculoskeletal Musculoskeletal: gait normal, strength equal bilaterally - Psychiatric Psychiatric: appropriate mood/affect, intact judgment & insight - Neurologic Neurologic: CNII-XII intact, moves all extremities Plan Activity: advance as tolerated Weight Bearing Status: Weight Bear as Tolerated Diet: low fat, low salt Special Instructions: restrict fluid intake to (1.5L per day) Additional Instructions: f/u with your seo assistant at [facility]. Follow up with: PRIMARY CARE, [Primary Care Provider] - 7 Days Prescriptions: Pravastatin [Pravachol] 40 mg PO QHS #30 tablet Aspirin EC [Halfprin EC] 81 mg PO QDAY #30 tablet. Metoprolol [Lopressor TAB] 12.5 mg PO BID #60 tablet lisinopriL [Zestril TAB] 40 mg PO QDAY #30 tablet
[2019-07-04] MEDS ORDERED: ACETAMINOPHEN 325 MG TAB PO PRN (16:00)
== END 2019-07-04 17:00 | disposition home or self-care (01) ==
LOC: ED 06:22 → 3A 11:01
PROVIDERS: ADMIT Internal Medicine; ATTEND Internal Medicine
DX: R07.89 Other chest pain (principal); I10 Essential (primary) hypertension; R74.8 Abnormal levels of other serum enzymes; F41.9 Anxiety disorder, unspecified; E78.00 Pure hypercholesterolemia, unspecified; M19.90 Unspecified osteoarthritis, unspecified site; Z98.890 Other specified postprocedural states
CPT/HCPCS: 36415; 71046; 71275; 78582; 80048; 80061; 80076; 80307; 81001; 82550; 82553; 82962; 83880; 84484; 85025; 85379; 85610; 85730; 93005; 93010; 93306; 96372; 96374; 96375; 96376; 99284; A9270; A9540; A9558; G0378; J1650; J1885; J2060; J2270; J2405; Q9967

== ENCOUNTER 2021-05-14 14:36 | Observation (INO) | payer MEDICAID ==
[2021-05-14] MEDS ORDERED: NITROGLYCERIN 0.4 MG TAB SUBL SL PRN (16:33)
[2021-05-14] MEDS ORDERED: MORPHINE 2 MG/1 ML INJ IV ONE (16:33)
[2021-05-14 16:49] LABS: Basophils % (Auto) 0.5 % (0.0-1.8); Eosinophils # (Auto) 0.1 K/mm3 (0.0-0.4); Eosinophils % (Auto) 1.6 % (0.0-4.3); Hematocrit 45.4 % (35.5-45.6); Hemoglobin 14.3 gm/dl (11.8-15.2); Lymphocytes # (Auto) 1.2 K/mm3 (1.2-5.4); Mean Corpuscular HGB Conc 32 % (32-34); Mean Corpuscular Volume 95 fl (84-94); Monocytes # (Auto) 0.5 K/mm3 (0.0-0.8); Platelet Count 253 K/mm3 (140-440); Red Blood Count 4.76 M/mm3 (3.65-5.03); Red Cell Distribution Width 13.3 % (13.2-15.2)
--- NOTE | 2021-05-14 16:50 | XRay Report ---
CHEST 2 VIEWS INDICATION / CLINICAL INFORMATION: Chest Pain. COMPARISON: 07/02/2019 FINDINGS: SUPPORT DEVICES: None. HEART / MEDIASTINUM: No significant abnormality. LUNGS / PLEURA: No significant pulmonary or pleural abnormality. No pneumothorax. ADDITIONAL FINDINGS: No significant additional findings. IMPRESSION: 1. No acute findings. Signer Name: Hong Myers MD Signed: 05/14/2021 4:45 PM Workstation Name: [id number]
[2021-05-14 16:52] LABS: Alanine Aminotransferase 18 units/L (7-56); Albumin 3.9 g/dL (3.9-5); BUN/Creatinine Ratio 14; Blood Urea Nitrogen 13 mg/dL (9-20); Calcium 9.4 mg/dL (8.4-10.2); Hemolysis Index 6
[2021-05-14] MEDS ORDERED: SODIUM CHLORIDE 0.9% 500 ML 500 ML IV ONE (16:57)
[2021-05-14 16:59] LABS: INR 0.96 (0.87-1.13)
--- NOTE | 2021-05-14 17:01 | Emergency Department Report ---
ED Chest Pain HPI - General Chief Complaint: Chest Pain Stated Complaint: CHEST PAIN Time Seen by Provider: 05/14/21 16:40 Source: patient Mode of arrival: Stretcher Limitations: No Limitations - History of Present Illness Initial Comments: Patient is a 65-year-old male here with complaint of chest pain. 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 He states that he was doing nothing earlier and developed middle chest pain and left sided chest pain that he reports as a tightness. He states it was severe 10 out of 10 when it first started and is currently 6 or 7 out of 10. He states it does not radiate. He notes no nausea no vomiting but states he does feel dizzy and lightheaded and his left arm feels numb. He also has history of hypertension, hyperlipidemia, CHF. MD Complaint: chest pain Severity scale (0 -10): 4 - Related Data Previous Rx's Medication Instructions Recorded Last Taken Type Aspirin EC [Halfprin EC] 81 mg PO QDAY #30 tablet. 07/04/19 Unknown Rx Metoprolol [Lopressor TAB] 12.5 mg PO BID #60 tablet 07/04/19 Unknown Rx Pravastatin [Pravachol] 40 mg PO QHS #30 tablet 07/04/19 Unknown Rx lisinopriL [Zestril TAB] 40 mg PO QDAY #30 tablet 07/04/19 Unknown Rx Allergies Allergy/AdvReac Type Severity Reaction Status Date / Time diphenhydramine HCl Allergy Hives Verified 10/31/14 10:30 [From Benadryl] Heart Score - HEART Score History: Moderately suspicious EKG: Non-specific Age: 45-65 Risk factors: 1-2 risk factors Troponin: < normal limit HEART Score: 4 - EKG Read Time Time EKG Completed: 15:35 EKG Read Time: 15:40 ED Review of Systems ROS: Stated complaint: CHEST PAIN Other details as noted in HPI Constitutional: no symptoms reported Eyes: denies: eye pain ENT: denies: throat pain Respiratory: denies: cough Cardiovascular: chest pain. denies: dyspnea on exertion, orthopnea, edema, syncope Endocrine: no symptoms reported Gastrointestinal: as per HPI. denies: nausea, vomiting Genitourinary: denies: urgency, dysuria Musculoskeletal: denies: back pain Skin: denies: rash Neurological: numbness. denies: headache, weakness Psychiatric: denies: anxiety, depression Hematological/Lymphatic: denies: easy bleeding ED Past Medical Hx - Past Medical History Previous Medical History?: Yes Hx Hypertension: Yes Hx Arthritis: Yes Additional medical history: high cholesterol - Surgical History Additional Surgical History: bilateral biceps repair. right rotator cuff repair. left great toe bone spur - Social History Smoking Status: Never Smoker - Medications Home Medications: Home Medications Medication Instructions Recorded Confirmed Last Taken Type Aspirin EC [Halfprin EC] 81 mg PO QDAY #30 tablet.dr 07/04/19 Unknown Rx Metoprolol [Lopressor TAB] 12.5 mg PO BID #60 tablet 07/04/19 Unknown Rx Pravastatin [Pravachol] 40 mg PO QHS #30 tablet 07/04/19 Unknown Rx lisinopriL [Zestril TAB] 40 mg PO QDAY #30 tablet 07/04/19 Unknown Rx ED Physical Exam - General Limitations: No Limitations General appearance: alert, in no apparent distress - Head Head exam: Present: atraumatic, normocephalic - Eye Eye exam: Present: normal appearance - ENT ENT exam: Present: mucous membranes moist - Neck Neck exam: Present: normal inspection - Respiratory Respiratory exam: Present: normal lung sounds bilaterally. Absent: respiratory distress - Cardiovascular Cardiovascular Exam: Present: regular rate, normal rhythm. Absent: systolic murmur, diastolic murmur, rubs, gallop - GI/Abdominal GI/Abdominal exam: Present: soft - Rectal Rectal exam: Present: deferred - Extremities Exam Extremities exam: Present: normal inspection - Back Exam Back exam: Present: normal inspection - Neurological Exam Neurological exam: Present: alert, oriented X3 - Psychiatric Psychiatric exam: Present: normal affect, normal mood - Skin Skin exam: Present: warm, dry, intact, normal color. Absent: rash ED Course Vital Signs 05/14/21 05/14/21 05/14/21 14:37 15:55 17:07 Temperature 98.3 F Pulse Rate 102 H 88 88 Respiratory 14 18 Rate Blood Pressure 188/105 Blood Pressure 138/60 150/101 [Left] O2 Sat by Pulse 98 98 Oximetry - Reevaluation(s) Reevaluation #1: 05/14/21 18:54 initial troponin is negative. EKG shows T wave inversions that are new. Plan for admission. ALYSIA score - Alysia Score Age > 65: (0) No Aspirin use within the Past 7 Days: (0) No 3 or more CAD Risk Factors: (1) Yes 2 or more Angina events in past 24 hrs: (0) No Known CAD with more than 50% Stenosis: (0) No Elevated Cardiac Markers: (0) No ST Deviation Greater than 0.5mm: (0) No ALYSIA Score: 1 ED Medical Decision Making - Lab Data Result diagrams: 05/14/21 16:18 05/14/21 16:18 - EKG Data -: EKG Interpreted by Me EKG shows normal: sinus rhythm Rate: normal No standard instances T wave inversions noted in: v4, v5, v6 - Medical Decision Making Patient is a 65-year-old male here with complaint of chest pain. Patient has significant risk factors including hypertension hyperlipidemia and CHF. Patient rates his pain currently a 7 out of 10 plan to give additional nitro and morphine. Patient already received aspirin prior to arrival. Given his elevated heart score to 4 patient likely to be admitted for further evaluation for his chest pain. Critical care attestation.: If time is entered above; I have spent that time in minutes in the direct care of this critically ill patient, excluding procedure time. ED Disposition Clinical Impression: Chest pain Disposition: 09 ADMITTED INPATIENT Is pt being admited?: No Does the pt Need Aspirin: Yes Condition: Stable Instructions: Nonspecific Chest Pain, Adult Referrals: PRIMARY CARE, [Primary Care Provider] - 3-5 Days Time of Disposition: 18:55
[2021-05-14 17:08] VITALS: BP 188/105
[2021-05-14] MEDS ORDERED: HYDROmorphone 1 MG/1 ML INJ IV PRN (21:19)
[2021-05-14] MEDS ORDERED: oxyCODONE /ACETAMINOPHEN 5-325MG TAB PO PRN (21:19)
[2021-05-14] MEDS ORDERED: ACETAMINOPHEN 325 MG TAB PO PRN (21:19)
[2021-05-14] MEDS ORDERED: ONDANSETRON 4 MG/2 ML INJ IV PRN (21:19)
--- NOTE | 2021-05-14 21:19 | History and Physical Report ---
History of Present Illness Date of examination: 05/14/21 Date of admission: 05/14/21 18:56 History of present illness: Patient is a 65-year-old male here with complaint of chest pain. 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 He states that he was doing nothing earlier and developed middle chest pain and left sided chest pain that he reports as a tightness. He states it was severe 10 out of 10 when it first started and is currently 6 or 7 out of 10. He states it does not radiate. He notes no nausea no vomiting but states he does feel dizzy and lightheaded and his left arm feels numb. He also has history of hypertension, hyperlipidemia, CHF. MD Complaint: chest pain Severity scale (0 -10): 4 - Related Data Previous Rx's Medication Instructions Recorded Last Taken Type Aspirin EC [Halfprin EC] 81 mg PO QDAY #30 tablet. 07/04/19 Unknown Rx Metoprolol [Lopressor TAB] 12.5 mg PO BID #60 tablet 07/04/19 Unknown Rx Pravastatin [Pravachol] 40 mg PO QHS #30 tablet 07/04/19 Unknown Rx lisinopriL [Zestril TAB] 40 mg PO QDAY #30 tablet 07/04/19 Unknown Rx Allergies Allergy/AdvReac Type Severity Reaction Status Date / Time diphenhydramine HCl Allergy Hives Verified 10/31/14 10:30 [From Benadryl] Heart Score - HEART Score History: Moderately suspicious EKG: Non-specific Age: 45-65 Risk factors: 1-2 risk factors Troponin: < normal limit HEART Score: 4 - EKG Read Time Time EKG Completed: 15:35 EKG Read Time: 15:40 - Past Medical History --Previous Medical History?: Yes --Hypertension: Yes --Arthritis: Yes --Additional medical history: high cholesterol - Surgical History --Additional Surgical History: bilateral biceps repair. right rotator cuff repair. left great toe bone spur - Social History --Smoking Status: Never Smoker - Medications --Home Medications: Home Medications Medication Instructions Recorded Confirmed Last Taken Type Aspirin EC [Halfprin EC] 81 mg PO QDAY #30 tablet. 07/04/19 Unknown Rx Metoprolol [Lopressor TAB] 12.5 mg PO BID #60 tablet 07/04/19 Unknown Rx Pravastatin [Pravachol] 40 mg PO QHS #30 tablet 07/04/19 Unknown Rx lisinopriL [Zestril TAB] 40 mg PO QDAY #30 tablet 07/04/19 Unknown Rx Review of Systems ROS: Stated complaint: CHEST PAIN Other details as noted in HPI Constitutional: no symptoms reported Eyes: denies: eye pain ENT: denies: throat pain Respiratory: denies: cough Cardiovascular: chest pain. denies: dyspnea on exertion, orthopnea, edema, syncope Endocrine: no symptoms reported Gastrointestinal: as per HPI. denies: nausea, vomiting Genitourinary: denies: urgency, dysuria Musculoskeletal: denies: back pain Skin: denies: rash Neurological: numbness. denies: headache, weakness Psychiatric: denies: anxiety, depression Hematological/Lymphatic: denies: easy bleeding Medications and Allergies Allergies Allergy/AdvReac Type Severity Reaction Status Date / Time diphenhydramine HCl Allergy Hives Verified 10/31/14 10:30 [From [facility]] Home Medications Medication Instructions Recorded Confirmed Last Taken Type Aspirin EC [Halfprin EC] 81 mg PO QDAY #30 tablet. 07/04/19 Unknown Rx Metoprolol [Lopressor TAB] 12.5 mg PO BID #60 tablet 07/04/19 Unknown Rx Pravastatin [Pravachol] 40 mg PO QHS #30 tablet 07/04/19 Unknown Rx lisinopriL [Zestril TAB] 40 mg PO QDAY #30 tablet 07/04/19 Unknown Rx Active Meds: Active Medications Nitroglycerin (Nitroglycerin 0.4 Mg Tab Subl) 0.4 mg SL .Q5MIN PRN PRN Reason: Chest Pain Last Admin: 05/14/21 17:07 Dose: 0.4 mg Documented by: Exam - Constitutional Vitals: Temp Pulse Resp BP Pulse Ox 98.3 F 88 18 188/105 98 05/14/21 15:55 05/14/21 17:07 05/14/21 15:55 05/14/21 17:07 05/14/21 15:55 HEART Score - HEART Score EKG: Non-specific Age: 45-65 Risk factors: 1-2 risk factors Troponin: Troponin T < 0.010 ng/mL (0.00-0.029) 05/14/21 19:15 Troponin: < normal limit Results - Labs CBC & Chem 7: 05/14/21 16:18 05/14/21 16:18 Labs: Laboratory Last Values WBC 5.3 K/mm3 (4.5-11.0) 05/14/21 16:18 RBC 4.76 M/mm3 (3.65-5.03) 05/14/21 16:18 Hgb 14.3 gm/dl (11.8-15.2) 05/14/21 16:18 Hct 45.4 % (35.5-45.6) 05/14/21 16:18 MCV 95 fl (84-94) H 05/14/21 16:18 MCH 30 pg (28-32) 05/14/21 16:18 MCHC 32 % (32-34) 05/14/21 16:18 RDW 13.3 % (13.2-15.2) 05/14/21 16:18 Plt Count 253 K/mm3 (140-440) 05/14/21 16:18 Lymph % (Auto) 22.0 % (13.4-35.0) 05/14/21 16:18 [place] % (Auto) 9.0 % (0.0-7.3) H 05/14/21 16:18 Eos % (Auto) 1.6 % (0.0-4.3) 05/14/21 16:18 Baso % (Auto) 0.5 % (0.0-1.8) 05/14/21 16:18 Lymph # (Auto) 1.2 K/mm3 (1.2-5.4) 05/14/21 16:18 [place] # (Auto) 0.5 K/mm3 (0.0-0.8) 05/14/21 16:18 Eos # (Auto) 0.1 K/mm3 (0.0-0.4) 05/14/21 16:18 Baso # (Auto) 0.0 K/mm3 (0.0-0.1) 05/14/21 16:18 Seg Neutrophils % 66.9 % (40.0-70.0) 05/14/21 16:18 Seg Neutrophils # 3.5 K/mm3 (1.8-7.7) 05/14/21 16:18 PT 13.9 Sec. (12.2-14.9) 05/14/21 16:18 INR 0.96 (0.87-1.13) 05/14/21 16:18 Sodium 138 mmol/L (137-145) 05/14/21 16:18 Potassium 4.2 mmol/L (3.6-5.0) 05/14/21 16:18 Chloride 103.0 mmol/L (98-107) 05/14/21 16:18 Carbon Dioxide 21 mmol/L (22-30) L 05/14/21 16:18 Anion Gap 18 mmol/L 05/14/21 16:18 BUN 13 mg/dL (9-20) 05/14/21 16:18 Creatinine 0.9 mg/dL (0.8-1.3) 05/14/21 16:18 Estimated GFR > 60 ml/min 05/14/21 16:18 BUN/Creatinine Ratio 14 % 05/14/21 16:18 Glucose 106 mg/dL (75-100) H 05/14/21 16:18 Calcium 9.4 mg/dL (8.4-10.2) 05/14/21 16:18 Total Bilirubin 0.50 mg/dL (0.1-1.2) 05/14/21 16:18 AST 23 units/L (5-40) 05/14/21 16:18 ALT 18 units/L (7-56) 05/14/21 16:18 Alkaline Phosphatase 79 units/L (35-129) 05/14/21 16:18 Troponin T < 0.010 ng/mL (0.00-0.029) 05/14/21 19:15 Total Protein 7.2 g/dL (6.3-8.2) 05/14/21 16:18 Albumin 3.9 g/dL (3.9-5) 05/14/21 16:18 Albumin/Globulin Ratio 1.2 % 05/14/21 16:18 Lipase 41 units/L (13-60) 05/14/21 16:18
[2021-05-14] MEDS ORDERED: FAMOTIDINE 20 MG TAB PO SCH (22:00)
[2021-05-14] MEDS ORDERED: PRAVASTATIN 40 MG TAB PO SCH (22:00)
[2021-05-14] MEDS ORDERED: HEPARIN 5,000 UNIT/1 ML VIAL SUB-Q SCH (22:00)
[2021-05-14] MEDS ORDERED: METOPROLOL TARTRATE 25 MG TAB PO SCH (22:00)
[2021-05-14] MEDS ORDERED: LISINOPRIL 40 MG TAB PO SCH (22:00)
--- NOTE | 2021-05-15 07:11 | Event Note ---
Date: 05/14/21 Patient left without performing anyone
[2021-05-15] MEDS ORDERED: ASPIRIN EC 81 MG TAB PO SCH (10:00)
--- NOTE | 2021-05-15 12:53 | Electrocardiograph Report ---
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
== END 2021-05-15 05:04 | disposition left against medical advice (07) ==
LOC: ED 14:36 → 4A 18:56
PROVIDERS: ADMIT Internal Medicine; ATTEND Internal Medicine
DX: R07.89 Other chest pain (principal); I11.0 Hypertensive heart disease with heart failure; I50.9 Heart failure, unspecified; E78.5 Hyperlipidemia, unspecified; M19.90 Unspecified osteoarthritis, unspecified site; E78.00 Pure hypercholesterolemia, unspecified; Z79.82 Long term (current) use of aspirin; Z79.899 Other long term (current) drug therapy; Z98.890 Other specified postprocedural states
CPT/HCPCS: 36415; 71046; 80053; 83690; 84484; 85025; 85610; 93005; 96374; 99285; G0378; J2270